=== PATIENT | female | born 1940 | race Caucasian/White ===

== ENCOUNTER 2016-11-04 21:34 | Emergency (ER) | payer MEDICARE ==
[2016-11-04 21:56] VITALS: TEMP 97.5
--- NOTE | 2016-11-04 22:41 | ED ---
General Adult HPI - General Chief complaint: Recheck/Abnormal Lab/Rx Stated complaint: High Blood Pressure Time Seen by Provider: 11/04/16 22:01 Source: patient, RN notes reviewed Mode of arrival: ambulatory Limitations: no limitations - History of Present Illness Initial comments: Patient is a pleasant 76-year-old female presenting to the emergency Department with concerns for high blood pressure. Patient felt uneasy in her stomach. No pain. No chest pain. Patient took her blood pressure at home and was elevated to 190/80. No weakness or confusion. No history of high blood pressure. Patient does occasionally take her blood pressure at home. Patient does admit to feeling more stress recently. - Related Data Home Medications Medication Instructions Recorded Confirmed Multivitamins, Thera [Multivitamin 1 tab PO DAILY 11/04/16 11/04/16 (formulary)] cycloSPORINE [Restasis] 1 drp BOTH EYES BID 11/04/16 11/04/16 Allergies Allergy/AdvReac Type Severity Reaction Status Date / Time grass pollen Allergy Dyspnea Verified 11/04/16 22:20 Sulfa (Sulfonamide Allergy Unknown Verified 11/04/16 22:20 Antibiotics) Childhood Review of Systems ROS Statement: Those systems with pertinent positive or pertinent negative responses have been documented in the HPI. ROS Other: All systems not noted in ROS Statement are negative. Constitutional: Denies: fever Eyes: Denies: eye pain ENT: Denies: ear pain Respiratory: Denies: cough Cardiovascular: Denies: chest pain Endocrine: Denies: fatigue Gastrointestinal: Denies: vomiting Genitourinary: Denies: dysuria Musculoskeletal: Denies: back pain Skin: Denies: rash Neurological: Denies: weakness Psychiatric: Reports: anxiety Past Medical History Past Medical History: No Reported History History of Any Multi-Drug Resistant Organisms: None Reported Past Surgical History: Cholecystectomy Additional Past Surgical History / Comment(s): colon surgery, lump removal from back Past Psychological History: No Psychological Hx Reported Smoking Status: Never smoker Past Alcohol Use History: None Reported Past Drug Use History: None Reported General Exam Limitations: no limitations General appearance: alert, in no apparent distress Head exam: Present: atraumatic Eye exam: Present: normal appearance, PERRL ENT exam: Present: normal oropharynx Neck exam: Present: normal inspection Respiratory exam: Present: normal lung sounds bilaterally. Absent: chest wall tenderness Cardiovascular Exam: Present: regular rate, normal rhythm Expanded Peripheral pulses: 2+: Radial (R), Radial (L), Dorsalis Pedis (R), Dorsalis Pedis (L) GI/Abdominal exam: Present: soft, normal bowel sounds. Absent: distended, tenderness, guarding, rebound, rigid, pulsatile mass Extremities exam: Present: normal inspection. Absent: pedal edema, calf tenderness Neurological exam: Present: alert, CN II-XII intact. Absent: motor sensory deficit Psychiatric exam: Present: normal affect, normal mood Skin exam: Absent: rash Course Vital Signs 11/04/16 11/04/16 11/04/16 21:50 22:15 22:30 Temperature 97.5 F L Pulse Rate 78 66 68 Respiratory 18 18 18 Rate Blood Pressure 225/82 175/88 178/86 O2 Sat by Pulse 97 99 99 Oximetry 11/04/16 11/04/16 23:11 23:31 Temperature Pulse Rate 61 60 Respiratory 20 16 Rate Blood Pressure 183/85 171/90 O2 Sat by Pulse 99 Oximetry EKG Findings - EKG Comments: EKG Findings:: Normal sinus rhythm 61. Normal intervals. Normal axis. Normal QRS. No acute ST change. Medical Decision Making - Medical Decision Making Patient reevaluated and symptom-free. Systolic blood pressure 177. Patient updated on results and need for follow-up with primary care physician. - Lab Data Result diagrams: 11/04/16 22:50 11/04/16 22:50 Lab Results 11/04/16 11/04/16 11/04/16 Range/Units 22:50 22:50 22:50 WBC 5.4 (3.8-10.6) k/uL RBC 4.95 (3.80-5.40) m/uL Hgb 14.8 (11.4-16.0) gm/dL Hct 43.7 (34.0-46.0) % MCV 88.2 (80.0-100.0) fL MCH 29.8 (25.0-35.0) pg MCHC 33.8 (31.0-37.0) g/dL RDW 12.2 (11.5-15.5) % Plt Count 184 (150-450) k/uL Neutrophils % 56 % Lymphocytes % 33 % Monocytes % 5 % Eosinophils % 3 % Basophils % 1 % Neutrophils # 3.0 (1.3-7.7) k/uL Lymphocytes # 1.8 (1.0-4.8) k/uL Monocytes # 0.3 (0-1.0) k/uL Eosinophils # 0.2 (0-0.7) k/uL Basophils # 0.1 (0-0.2) k/uL PT (9.0-12.0) sec INR (<1.1) APTT (22.0-30.0) sec Sodium 140 (137-145) mmol/L Potassium 3.9 (3.5-5.1) mmol/L Chloride 104 (98-107) mmol/L Carbon Dioxide 24 (22-30) mmol/L Anion Gap 12 mmol/L BUN 14 (7-17) mg/dL Creatinine 0.80 (0.52-1.04) mg/dL Est GFR (MDRD) Af Amer >60 (>60 ml/min/1.73 sqM) Est GFR (MDRD) Non-Af >60 (>60 ml/min/1.73 sqM) Glucose 102 H (74-99) mg/dL Calcium 9.9 (8.4-10.2) mg/dL Total Bilirubin 0.7 (0.2-1.3) mg/dL AST 32 (14-36) U/L ALT 35 (9-52) U/L Alkaline Phosphatase 123 (38-126) U/L Total Creatine Kinase 70 (30-135) U/L CK-MB (CK-2) 0.7 (0.0-2.4) ng/mL CK-MB (CK-2) Rel Index 1.0 Troponin I <0.012 (0.000-0.034) ng/mL Total Protein 7.5 (6.3-8.2) g/dL Albumin 4.5 (3.5-5.0) g/dL Urine Color Urine Appearance (Clear) Urine pH (5.0-8.0) Ur Specific [place] (1.001-1.035) Urine Protein (Negative) Urine Glucose (UA) (Negative) Urine Ketones (Negative) Urine Blood (Negative) Urine Nitrite (Negative) Urine Bilirubin (Negative) Urine Urobilinogen (<2.0) mg/dL Ur Leukocyte Esterase (Negative) Urine RBC (0-5) /hpf Urine WBC (0-5) /hpf Ur Squamous Epith Cells (0-4) /hpf 11/04/16 11/04/16 Range/Units 22:50 23:00 WBC (3.8-10.6) k/uL RBC (3.80-5.40) m/uL Hgb (11.4-16.0) gm/dL Hct (34.0-46.0) % MCV (80.0-100.0) fL MCH (25.0-35.0) pg MCHC (31.0-37.0) g/dL RDW (11.5-15.5) % Plt Count (150-450) k/uL Neutrophils % % Lymphocytes % % Monocytes % % Eosinophils % % Basophils % % Neutrophils # (1.3-7.7) k/uL Lymphocytes # (1.0-4.8) k/uL Monocytes # (0-1.0) k/uL Eosinophils # (0-0.7) k/uL Basophils # (0-0.2) k/uL PT 10.4 (9.0-12.0) sec INR 1.0 (<1.1) APTT 24.8 (22.0-30.0) sec Sodium (137-145) mmol/L Potassium (3.5-5.1) mmol/L Chloride (98-107) mmol/L Carbon Dioxide (22-30) mmol/L Anion Gap mmol/L BUN (7-17) mg/dL Creatinine (0.52-1.04) mg/dL Est GFR (MDRD) Af Amer (>60 ml/min/1.73 sqM) Est GFR (MDRD) Non-Af (>60 ml/min/1.73 sqM) Glucose (74-99) mg/dL Calcium (8.4-10.2) mg/dL Total Bilirubin (0.2-1.3) mg/dL AST (14-36) U/L ALT (9-52) U/L Alkaline Phosphatase (38-126) U/L Total Creatine Kinase (30-135) U/L CK-MB (CK-2) (0.0-2.4) ng/mL CK-MB (CK-2) Rel Index Troponin I (0.000-0.034) ng/mL Total Protein (6.3-8.2) g/dL Albumin (3.5-5.0) g/dL Urine Color Colorless Urine Appearance Clear (Clear) Urine pH 7.0 (5.0-8.0) Ur Specific [place] 1.004 (1.001-1.035) Urine Protein Negative (Negative) Urine Glucose (UA) Negative (Negative) Urine Ketones Negative (Negative) Urine Blood Negative (Negative) Urine Nitrite Negative (Negative) Urine Bilirubin Negative (Negative) Urine Urobilinogen <2.0 (<2.0) mg/dL Ur Leukocyte Esterase Large H (Negative) Urine RBC 1 (0-5) /hpf Urine WBC 7 H (0-5) /hpf Ur Squamous Epith Cells <1 (0-4) /hpf - Radiology Data Radiology results: image reviewed (Chest x-ray shows no acute process.) Disposition Clinical Impression: Hypertension Disposition: HOME SELF-CARE Condition: Stable Instructions: Hypertension (ED) Additional Instructions: Please follow-up with primary care physician this week. Return for uncontrolled blood pressure, chest pain, weakness, worsening symptoms or other concerns. Referrals: Rosemarie Ojeda MD [Primary Care Provider] - 1-2 days Time of Disposition: 00:06
[2016-11-04 23:02] LABS: Basophils # (A) 0.1 k/uL (0-0.2); Basophils % (A) 1 %; CH 30.2; CHCM 34.3; Eosinophils # (A) 0.2 k/uL (0-0.7); Eosinophils % (A) 3 %; HCT 43.7 % (34.0-46.0); HDW 2.42; HGB 14.8 gm/dL (11.4-16.0); Luc # (Auto) 0.12; Luc % (Auto) 2; Lymphocytes # (A) 1.8 k/uL (1.0-4.8); Lymphocytes % (A) 33 %; MCH 29.8 pg (25.0-35.0); MCHC 33.8 g/dL (31.0-37.0); MCV 88.2 fL (80.0-100.0); Mean Platelet Volume 7.7; Monocytes # (A) 0.3 k/uL (0-1.0); Monocytes % (A) 5 %; Neutrophils % (A) 56 %; RBC 4.95 m/uL (3.80-5.40); RDW 12.2 % (11.5-15.5); WBC 5.4 k/uL (3.8-10.6); WBC (Perox) 5.07
[2016-11-04 23:11] LABS: Partial Thromboplastin Time 24.8 sec (22.0-30.0); Prothrombin Time 10.4 sec (9.0-12.0)
[2016-11-04 23:12] LABS: ALT 35 U/L (9-52); AST 32 U/L (14-36); Alkaline Phosphatase 123 U/L (38-126); Anion Gap 12 mmol/L; Blood Urea Nitrogen 14 mg/dL (7-17); Calcium 9.9 mg/dL (8.4-10.2); Carbon Dioxide 24 mmol/L (22-30); Chloride 104 mmol/L (98-107); Glucose 102 mg/dL (74-99); Non-African American GFR(MDRD) >60 (>60 ml/min/1.73 sqM); Potassium 3.9 mmol/L (3.5-5.1); Sodium 140 mmol/L (137-145); Total Bilirubin 0.7 mg/dL (0.2-1.3); Total Protein 7.5 g/dL (6.3-8.2)
--- NOTE | 2016-11-04 23:14 | XR ---
EXAM: XR Chest, 2 Views CLINICAL HISTORY: Reason: Weakness TECHNIQUE: Frontal and lateral views of the chest. COMPARISON: No relevant prior studies available. FINDINGS: Lungs: Lungs are clear. Pleural space: No evidence of pneumothorax or pleural effusion. Heart: Heart size is within normal limits. Mediastinum: Mediastinal structures are within normal limits. Bones/joints: Imaged bony thorax is unremarkable. IMPRESSION: No evidence of active chest disease.
[2016-11-04 23:16] LABS: Appearance,Urine Clear (Clear); Bilirubin,Urine Negative (Negative); Glucose,Urine (UA) Negative (Negative); Ketones,Urine Negative (Negative); Leukocyte Esterase,Urine Large (Negative); Nitrite,Urine Negative (Negative); Particle Count 2308; Protein,Urine Negative (Negative); RBC,Urine 1 /hpf (0-5); Specific Gravity,Urine 1.004 (1.001-1.035); Squamous Epithelial Cell,Urine <1 /hpf (0-4); UA Billing (MACRO vs. MICRO) MICRO; Urobilinogen,Urine <2.0 mg/dL (<2.0); WBC,Urine 7 /hpf (0-5)
[2016-11-04 23:23] LABS: Creatine Kinase 70 U/L (30-135)
[2016-11-04] MEDS ORDERED: amLODIPine 5 MG TAB PO STA (23:30)
[2016-11-04 23:31] VITALS: RESP 16
[2016-11-04 23:36] LABS: Creatine Kinase MB 0.7 ng/mL (0.0-2.4); Troponin I <0.012 ng/mL (0.000-0.034)
[2016-11-05 00:27] VITALS: BP 177/78; PULSE 58
== END 2016-11-05 00:25 | disposition home or self-care (01) ==
LOC: EC 21:34
DX: I10 Essential (primary) hypertension (principal); Z79.899 Other long term (current) drug therapy; Z88.2 Allergy status to sulfonamides; Z91.048 Other nonmedicinal substance allergy status
CPT/HCPCS: 36415; 71020; 80053; 81001; 82550; 82553; 84484; 85025; 85610; 85730; 93005; 99284

== ENCOUNTER 2017-08-02 21:24 | Emergency (ER) | payer MEDICARE ==
[2017-08-02 21:31] VITALS: RESP 18
[2017-08-02] MEDS ORDERED: CARVEDILOL 6.25 MG TAB PO STA (21:33)
[2017-08-02 21:57] LABS: Basophils % (A) 1 %; Eosinophils # (A) 0.2 k/uL (0-0.7); Eosinophils % (A) 3 %; HCT 45.2 % (34.0-46.0); HGB 14.3 gm/dL (11.4-16.0); Lymphocytes # (A) 2.3 k/uL (1.0-4.8); Lymphocytes % (A) 39 %; MCH 28.8 pg (25.0-35.0); MCHC 31.6 g/dL (31.0-37.0); MCV 91.2 fL (80.0-100.0); Mean Platelet Volume 7.5; Monocytes # (A) 0.3 k/uL (0-1.0); Monocytes % (A) 5 %; Neutrophils % (A) 50 %; Platelet Count 224 k/uL (150-450); RBC 4.95 m/uL (3.80-5.40); RDW 12.2 % (11.5-15.5)
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
[2017-08-02 22:13] LABS: Blood Urea Nitrogen 17 mg/dL (7-17); Calcium 9.4 mg/dL (8.4-10.2); Carbon Dioxide 25 mmol/L (22-30); Potassium 4.1 mmol/L (3.5-5.1)
[2017-08-02 22:14] LABS: Glucose 105 mg/dL (74-99)
[2017-08-02 22:16] LABS: Anion Gap 12 mmol/L; Chloride 104 mmol/L (98-107); Sodium 141 mmol/L (137-145)
[2017-08-02 23:39] VITALS: BP 150/65; PULSE 54; TEMP 96.9
== END 2017-08-02 23:37 | disposition home or self-care (01) ==
LOC: EC 21:24
DX: I10 Essential (primary) hypertension (principal); Z79.02 Long term (current) use of antithrombotics/antiplatelets; Z79.899 Other long term (current) drug therapy; Z91.048 Other nonmedicinal substance allergy status; Z88.2 Allergy status to sulfonamides
CPT/HCPCS: 36415; 80048; 84484; 85025; 93005; 99283

== ENCOUNTER 2017-10-15 06:28 | Day surgery (SDC) | payer MEDICARE ==
[2017-10-10 15:13] VITALS: BMI 21.2
[~2017-10-15 06:28] MED LIST: LACTATED RINGERS 1,000 ML IV SCH; LIDOCAINE 1% 20 ML VIAL (10MG/ML) FOR IV START INTRADERMA PRN
[2017-10-15 07:19] VITALS: RESP 16; TEMP 97.6
[2017-10-15] MEDS ORDERED: LIDOCAINE 1% INJ 10MG/ML (20 ML MDV) ONE (07:40)
[2017-10-15] MEDS ORDERED: PROPOFOL 10 MG/ML 20 ML VIAL IV ONE (07:40)
--- NOTE | 2017-10-15 08:30 | P.OP ---
Date of Procedure: 10/15/17 Preoperative Diagnosis: Patient is status post right colon resection for polypoid lesion personal history of colon polyps Postoperative Diagnosis: Diverticuli, internal hemorrhoids Procedure(s) Performed: Colonoscopy Anesthesia: MAC Estimated Blood Loss (ml): 0 IV fluids (ml): 350 Pathology: none sent Condition: stable Disposition: PACU Indications for Procedure: Patient with a history of right colon resection and colon polyps Operative Findings: Diverticuli, internal hemorrhoids Description of Procedure: Patient was taken to the endoscopy suite and following sedation rectal exam was performed. She had some excoriation of the perianal area and some patulousness of the anus. No masses were identified. Colonoscope was passed through the anus into the rectum. Was passed through the sigmoid colon up to splenic flexure and into the transverse colon. This passed to the anastomosis patient is status post a right colon resection. Circumferential observation of the mucosa did not reveal any lesions of concern in the transverse colon or at the area of the anastomosis. No polypoid lesions of concern were identified in the transverse colon or left colon or sigmoid colon the patient did have diverticuli in the sigmoid colon. Scope was brought down to the rectum where it was retroflexed internal hemorrhoids were identified. Impression/plan: 1. Diverticuli 2. Internal hemorrhoids Plan: Repeat scope 7-10 years 2. Conservative management of hemorrhoids and diverticuli
--- NOTE | 2017-10-15 08:31 | P.DS ---
Providers Attending physician: Little Sneed Primary care physician: Rosemarie Ojeda Plan - Discharge Summary New Discharge Prescriptions: No Action cycloSPORINE [Restasis] 1 drp BOTH EYES BID Multivitamins, Thera [Multivitamin (formulary)] 1 tab PO DAILY Carvedilol [Coreg] 6.25 mg PO BID Discharge Medication List Multivitamins, Thera [Multivitamin (formulary)] 1 tab PO DAILY 11/04/16 [History ] cycloSPORINE [Restasis] 1 drp BOTH EYES BID 11/04/16 [History] Carvedilol [Coreg] 6.25 mg PO BID 08/02/17 [History] Activity/Diet/Wound Care/Special Instructions: Diverticular diet Do not drive today Discharge Disposition: HOME SELF-CARE
[2017-10-15 09:15] VITALS: BP 140/76; PULSE 67
== END 2017-10-15 09:32 | disposition home or self-care (01) ==
LOC: ORWHC2ENDO 06:28
PROVIDERS: ATTEND Surgery
DX: K57.30 Diverticulosis of large intestine without perforation or abscess without bleeding (principal); K62.89 Other specified diseases of anus and rectum; K64.8 Other hemorrhoids; I10 Essential (primary) hypertension; Z86.010 Personal history of colon polyps; Z90.49 Acquired absence of other specified parts of digestive tract; Z98.0 Intestinal bypass and anastomosis status; Z88.2 Allergy status to sulfonamides; Z79.899 Other long term (current) drug therapy
CPT/HCPCS: 45378; J2001; J2704

== ENCOUNTER → 2018-02-05 | Outpatient (CLI) | payer MEDICARE ==
[2018-02-05 08:41] LABS: Blood Urea Nitrogen 12 mg/dL (7-17)
--- NOTE | 2018-02-05 14:37 | CT ---
EXAMINATION TYPE: CT abdomen pelvis w con DATE OF EXAM: 02/05/2018 COMPARISON: None INDICATION: Diverticulitis DLP: 392.7 mGycm, Automated exposure control for dose reduction was used. CONTRAST: 100 mL of Isovue 300. Study performed with Oral Contrast TECHNIQUE: Axial images were obtained from above the diaphragm to the pubic rami in the axial plane a t 5 mm thick sections. Reconstructed images are reviewed on the computer in the coronal plane. FINDINGS: Limited CT sections are obtained the lung bases. There is a 0.4 cm nodule on the periphery of the ri ght lower lobe along the major fissure. Lung bases otherwise appear clear. Follow-up 6 [address] is im[address] mm[address]. CT ABDOMEN: Liver: Normal Spleen: Normal Pancreas: Normal Adrenal glands: The adrenal glands are normal. Gallbladder: Normal Kidneys: No masses are evident. No hydronephrosis is present. There is a 1.3 cm cyst measuring 32 H [place] units in the right mid renal cortex. Very tiny renal cortical cyst the the present kidneys and plane images. Delayed images were obtained through the kidneys, which remain unremarkable. Aorta: Vascular calcification is within the aorta. Inferior vena cava: Normal. CT PELVIS: Loops of bowel within the abdomen and pelvis are normal. There are scattered diverticuli of the d escending colon sigmoid colon junction. Minimal wall thickening may be present. Very mild diverticuli tis may be present. Significant inflammatory changes adjacent are not identified. Appendix: Normal as visualized on the axial plane images. Urinary bladder: Normal. Genitourinary structures: Uterus is normal. Adnexal regions are clear. Osseous structures: No suspicious lytic or sclerotic lesions. Facet degenerative changes are present. IMPRESSIONS: 1. Suggestion of mild diverticulitis at the descending colon sigmoid colon junction. 2. Tiny nonspecific nodules in the right lower lobe major fissure. Follow-up chest CT within 6 months is recommended.
== END | disposition home or self-care (01) ==
LOC: RADCTMAIN 07:55
PROVIDERS: ATTEND Surgery Plastic and Reconstructive Surgery
DX: R91.8 Other nonspecific abnormal finding of lung field (principal); Z88.2 Allergy status to sulfonamides
CPT/HCPCS: 82565; 84520; 74177; 36415; Q9967

== ENCOUNTER → 2019-12-15 | Outpatient (CLI) | payer MEDICARE ==
--- NOTE | 2019-12-15 08:56 | XR ---
EXAMINATION TYPE: XR cervical spine limited DATE OF EXAM: 12/15/2019 COMPARISON: NONE HISTORY: Pain TECHNIQUE: 3 views submitted FINDINGS: Odontoid view is nondiagnostic. 2 mm anterolisthesis C4 on C5. Severe degenerative disc disease C5-6 and C6-C7. Multilevel facet arth ropathy. Prevertebral soft tissue structures within normal limits. Ossification or calcification seen anterior to C5. IMPRESSION: 1. Multilevel severe degenerative disc disease. There is a 2 mm anterolisthesis C4 on C5. Consider MR I.
--- NOTE | 2019-12-15 09:04 | XR ---
EXAMINATION TYPE: XR shoulder complete RT DATE OF EXAM: 12/15/2019 COMPARISON: NONE HISTORY: Pain TECHNIQUE: Three views are submitted. FINDINGS: The osseous structures are intact. There is no acute fracture or dislocation. Arthropathy of the AC joint. Calcified lymph nodes in the right hilum. Diffuse osteopenia.. IMPRESSION: 1. Diffuse osteopenia with AC joint arthropathy.
== END | disposition home or self-care (01) ==
LOC: RADXRMAIN 07:39
PROVIDERS: ATTEND Family Medicine
DX: M85.811 Other specified disorders of bone density and structure, right shoulder (principal); M12.811 Other specific arthropathies, not elsewhere classified, right shoulder; M43.12 Spondylolisthesis, cervical region; M50.30 Other cervical disc degeneration, unspecified cervical region
CPT/HCPCS: 72040

== ENCOUNTER → 2020-01-12 | Outpatient (CLI) | payer MEDICARE ==
--- NOTE | 2020-01-12 16:01 | MR ---
EXAMINATION TYPE: MR cervical spine wo con DATE OF EXAM: 01/12/2020 COMPARISON: X-ray 12/15/2019 HISTORY: Degenerative joint disease, sore shoulder and neck TECHNIQUE: Multiplanar, multisequence images of the cervical spine were acquired. C2-C3: Degenerative disc disease with facet arthropathy greater on the left. Moderate left-sided fora romario encroachment. C3-C4: Degenerative disc disease with facet arthropathy. Uncovertebral joint hypertrophy. Moderate le ft foraminal encroachment. C4-C5: Degenerative disc disease. Facet arthropathy, uncovertebral joint hypertrophy and broad-based disc bulging capped by spur results in anterior compression of the spinal cord and moderate canal pelon nosis. Moderate to severe right foraminal encroachment and moderate left foraminal encroachment. C5-C6: Severe degenerative disc disease with retrolisthesis of C5 relative to C6. Disc osteophyte com plex with disc protrusion capped by spur results in moderate compression of the thecal sac and spinal cord. Facet arthropathy and uncovertebral joint hypertrophy contributes to moderate to severe bilate ral foraminal encroachment and moderate canal stenosis. C6-C7: Severe degenerative disc disease. Broad-based disc bulging with hypertrophic change of the unc overtebral joints. Moderate bilateral foraminal encroachment with no canal stenosis. C7-T1: No evidence for degenerative disc disease. No disc bulge/herniation or protrusion. No Canal stenosis. Foramina are patent bilaterally. Cervical segments are intact. There is normal alignment. Cervical spinal cord is of normal signal. Craniovertebral junction relationships are within normal limits. IMPRESSION: 1. Severe multilevel degenerative disc disease with multilevel disc bulging capped by spur resulting in multilevel canal stenosis and significant foraminal encroachment most marked at C4-5 and C5-6.
== END ==
LOC: RADMRIMAIN 15:00
PROVIDERS: ATTEND Family Medicine
DX: M48.02 Spinal stenosis, cervical region (principal); M50.221 Other cervical disc displacement at C4-C5 level; M50.321 Other cervical disc degeneration at C4-C5 level
CPT/HCPCS: 72141

== ENCOUNTER 2020-03-30 11:00 | Emergency (ER) | payer MEDICARE ==
[2020-03-30 11:07] VITALS: RESP 18; TEMP 98
--- NOTE | 2020-03-30 12:21 | CT ---
EXAMINATION TYPE: CT brain duy perez DATE OF EXAM: 03/30/2020 COMPARISON: HISTORY: Fall, struck back of head on carpeted floor, pt on low dose aspirin CT DLP: 1217.7 mGycm Automated exposure control for dose reduction was used. TECHNIQUE: CT scan of the head and cervical spine are performed without contrast. FINDINGS: There is no acute intracranial hemorrhage, mass effect, or midline shift identified. The ventricles and sulci are within normal limits in size. The globes are intact and the visualized sin uses are clear. Cervical spine is visualized in its entirety from C1 through upper thoracic levels and demonstrates a nterolisthesis grade 1 C4-5, retrolisthesis grade 1 C5-6 and C6-7 without evidence of acute fracture or dislocation. Loss of disc height is present at C5-6 and C6-7, there is associated spondylosis, mul tilevel foraminal encroachment, facet arthropathy. Prevertebral soft tissue appears within normal [place] its. The C1-C2 articulation is unremarkable. IMPRESSION: 1. There is no acute fracture or dislocation evident in the cervical spine. 2. No acute intracranial hemorrhage, mass effect, or midline shift is seen.
--- NOTE | 2020-03-30 12:34 | ED ---
Head Injury HPI - General Chief complaint: Head Injury Stated complaint: Fell, hit head Time Seen by Provider: 03/30/20 11:10 Source: patient Mode of arrival: ambulatory Limitations: no limitations - History of Present Illness Initial comments: Patient is 79-year-old female presenting to emergency Department with the chief complaint of fall. Patient states she was up on a ladder attempting to remove her curtains when she lost her footing as she was attempting to get on the bed. States she felt backward on her back and hit the occipital region of her head. Denies any loss of consciousness or any blood thinners. States she now has pain in the cervical spine and along bilateral trapezii. She denies any alleviating or aggravating factors. Denies any visual disturbances, one-sided weakness or paresthesias. - Related Data Home Medications Medication Instructions Recorded Confirmed Aspirin EC [Ecotrin Low Dose] 81 mg PO DAILY 03/30/20 03/30/20 amLODIPine [Norvasc] 2.5 mg PO DAILY 03/30/20 03/30/20 carvediloL [Coreg] 6.25 mg PO BID 03/30/20 03/30/20 Allergies/Adverse reactions: Allergies Allergy/AdvReac Type Severity Reaction Status Date / Time grass pollen Allergy Dyspnea Verified 03/30/20 11:44 Sulfa (Sulfonamide Allergy Rash/Hives Verified 03/30/20 11:44 Antibiotics) Review of Systems ROS Statement: Those systems with pertinent positive or pertinent negative responses have been documented in the HPI. ROS Other: All systems not noted in ROS Statement are negative. Past Medical History Past Medical History: Hypertension Additional Past Medical History / Comment(s): diverticulosis, kidney stones, recent hx. diverticulitis History of Any Multi-Drug Resistant Organisms: None Reported Past Surgical History: Bowel Resection, Cholecystectomy Additional Past Surgical History / Comment(s): lump removal from back Past Anesthesia/Blood Transfusion Reactions: No Reported Reaction Past Psychological History: No Psychological Hx Reported Smoking Status: Never smoker Past Alcohol Use History: None Reported Past Drug Use History: None Reported - Past Family History Mother Family Medical History: Cancer General Exam Limitations: no limitations General appearance: alert, in no apparent distress Head exam: Present: atraumatic, normocephalic, normal inspection. Absent: other (Negative Bowen sign, raccoon eyes, hemotympanum.) Eye exam: Present: normal appearance, PERRL, EOMI Pupils: Present: normal accommodation ENT exam: Present: normal exam, normal oropharynx, mucous membranes moist, TM's normal bilaterally, normal external ear exam Neck exam: Present: normal inspection, tenderness (Mild mid cervical and paraspinal tenderness.), full ROM. Absent: meningismus, lymphadenopathy, thyromegaly Respiratory exam: Present: normal lung sounds bilaterally. Absent: respiratory distress, wheezes, rales Cardiovascular Exam: Present: regular rate, normal rhythm, normal heart sounds GI/Abdominal exam: Present: soft. Absent: distended, tenderness, guarding, rebound Extremities exam: Present: normal inspection, full ROM, normal capillary refill. Absent: tenderness Back exam: Present: normal inspection, full ROM. Absent: tenderness, CVA tenderness (R), CVA tenderness (L) Neurological exam: Present: alert, oriented X3, CN II-XII intact, normal gait Psychiatric exam: Present: normal affect, normal mood Skin exam: Present: warm, dry, intact, normal color Course Vital Signs 03/30/20 03/30/20 11:01 12:47 Temperature 98.0 F Pulse Rate 59 L 60 Respiratory 18 18 Rate Blood Pressure 146/60 140/62 O2 Sat by Pulse 98 98 Oximetry Medical Decision Making - Medical Decision Making patient is 79-year-old female presenting to the emergency department with a chief complaint of fall. On physical examination, no significant signs of trauma are detected in the head. Brain and C-spine CT without contrast shows no acute processes. Patient advised to follow with the primary care physician. She did not have any complaints on initial evaluation. Return parameters were thoroughly discussed with patient was understanding and agreeable. Case discussed with physician. Disposition Clinical Impression: Head injury, Fall Disposition: HOME SELF-CARE Condition: Stable Instructions (If sedation given, give patient instructions): Head Injury (ED) Additional Instructions: Follow-up with your primary care physician .Return to emergency department if symptoms worsen. Is patient prescribed a controlled substance at d/c from ED?: No Referrals: Rosemarie Ojeda MD [Primary Care Provider] - 1-2 days Time of Disposition: 12:34
[2020-03-30 12:48] VITALS: BP 140/62; PULSE 60
== END 2020-03-30 12:36 | disposition home or self-care (01) ==
LOC: EC 11:00
DX: S09.90XA Unspecified injury of head, initial encounter (principal); I10 Essential (primary) hypertension; Z79.82 Long term (current) use of aspirin; Z79.02 Long term (current) use of antithrombotics/antiplatelets; Z79.899 Other long term (current) drug therapy; Z88.2 Allergy status to sulfonamides; Z91.018 Allergy to other foods; W11.XXXA Fall on and from ladder, initial encounter
CPT/HCPCS: 70450; 72125; 99283

== ENCOUNTER 2021-11-02 07:48 | Day surgery (SDC) | payer MEDICARE ==
[2021-11-01 10:11] VITALS: BMI 22.3
[~2021-11-02 07:48] MED LIST changes: -LIDOCAINE 1% 20 ML VIAL (10MG/ML) FOR IV START INTRADERMA PRN
--- NOTE | 2021-11-02 08:11 | P.GSHP ---
History of Present Illness H&P Date: 11/02/21 CHIEF COMPLAINT: Colon screen HISTORY OF PRESENT ILLNESS: The patient is a 81-year-old female who presents for colon screen. Lower endoscopy was offered for further evaluation and management. PAST MEDICAL HISTORY: Please see list. PAST SURGICAL HISTORY: Please see list. MEDICATIONS: Please see list. ALLERGIES: Please see list. SOCIAL HISTORY: No illicit drug use FAMILY HISTORY: No reports of Crohn disease or ulcerative colitis. REVIEW OF ORGAN SYSTEMS: CONSTITUTIONAL: No reports of fevers or chills. PHYSICAL EXAM: VITAL SIGNS: Stable GENERAL: Well-developed pleasant in no acute distress. HEENT: No scleral icterus. Extraocular movements grossly intact. Moist buccal mucosa. NECK: Supple without lymphadenopathy. CHEST: Unlabored respirations. Equal bilateral excursions. CARDIOVASCULAR: Regular rate and rhythm. Distal 2+ pulses. ABDOMEN: Soft, nontender, nondistended. MUSCULOSKELETAL: No clubbing, cyanosis, or edema. ASSESSMENT: 1. Colon screen. PLAN: 1. Recommend proceeding with a lower endoscopy Past Medical History Past Medical History: Hypertension Additional Past Medical History / Comment(s): intermittent left lower abd pain,diverticulosis, kidney stones, hx. diverticulitis History of Any Multi-Drug Resistant Organisms: None Reported Past Surgical History: Bowel Resection, Cholecystectomy Additional Past Surgical History / Comment(s): lump removal from back,bowerl resection r/t too large of polyp Past Anesthesia/Blood Transfusion Reactions: No Reported Reaction, Motion Sick ness Smoking Status: Never smoker - Past Family History Mother Family Medical History: Cancer Additional Family Medical History / Comment(s): stomach Medications and Allergies Home Medications Medication Instructions Recorded Confirmed Type Aspirin EC [Ecotrin Low Dose] 81 mg PO DAILY 03/30/20 11/01/21 History amLODIPine [Norvasc] 2.5 mg PO QAM 03/30/20 11/02/21 History carvediloL [Coreg] 3.125 mg PO BID 03/30/20 11/02/21 History Allergies Allergy/AdvReac Type Severity Reaction Status Date / Time grass pollen Allergy Dyspnea Verified 11/02/21 08:04 Sulfa (Sulfonamide Allergy Rash/Hives Verified 11/02/21 08:04 Antibiotics)
[2021-11-02 08:17] VITALS: RESP 16; TEMP 97
[2021-11-02] MEDS ORDERED: PROPOFOL 10 MG/ML 20 ML VIAL IV ONE (09:14)
--- NOTE | 2021-11-02 09:41 | P.PCN ---
Date of Procedure: 11/02/21 Description of Procedure: PREOPERATIVE DIAGNOSIS: Personal history of colon polyps Colonoscopy screening POSTOPERATIVE DIAGNOSIS: Status post right hemicolectomy Tubular adenoma transverse colon Sigmoid diverticulosis Internal hemorrhoids, grade 2 Polypoid lesion ileocolic and external Lipoma rectum OPERATION: Colonoscopy to the ileocolic anastomosis Colonoscopy with hot snare polypectomy Colonoscopy with cold forceps biopsy SURGEON: Cindy Steiner MD. ANESTHESIA: MAC. INDICATIONS: The patient is an 67-year-old male who presents family history of malignant colon polyps and personal history of colon polyps. Last colonoscopy over 5 years. Benefits and risks were described and informed consent was obtained. DESCRIPTION OF PROCEDURE: The patient had undergone Sutab prep. The patient had been brought into the operating room and laid in the left lateral decubitus position. After adequate intravenous sedation, the rectum was examined with 2% lidocaine jelly. The prostate was unremarkable. External hemorrhoids were encountered. The rectal tone was within normal limits. No lesions were palpated in the rectal vault. An Olympus colonoscope was advanced until the cecum, ileocecal valve and appendiceal orifice were clearly viewed. The prep was good. Sigmoid diverticulosis was encountered. Colonic polyps were found and removed. No evidence of focal colitis was found. Retroflexion of the scope demonstrated grade 2 internal hemorrhoids without active bleeding or inflammation. The colon was desufflated. The patient had tolerated the procedure well. Withdrawal time was over 6 minutes. FINDINGS: Aronchick preparation quality scale 2 (1-5) Internal hemorrhoids, grade 2 External hemorrhoids, grade 2. No arteriovenous malformations. Ileocolic anastomosis with multiple small polypoid lesions biopsied Sigmoid diverticulosis Lipoma of the rectum, 3 mm Removal of 3 polyps: - Snare polypectomy transverse colon 2, 5 mm to 8 mm tubulovillous adenoma polyp. - Cold forceps biopsy at 15 cm from the anal verge, 4 mm polyp, sigmoid colon No focal colitis. RECOMMENDATIONS: Repeat colonoscopy in 3 years, 2024 Plan - Discharge Summary Discharge Rx Participant: No New Discharge Prescriptions: Continue Aspirin EC [Ecotrin Low Dose] 81 mg PO DAILY carvediloL [Coreg] 3.125 mg PO BID amLODIPine [Norvasc] 2.5 mg PO QAM Discharge Medication List Aspirin EC [Ecotrin Low Dose] 81 mg PO DAILY 03/30/20 [History] amLODIPine [Norvasc] 2.5 mg PO QAM 03/30/20 [History] carvediloL [Coreg] 3.125 mg PO BID 03/30/20 [History] Follow up Appointment(s)/Referral(s): Cindy Steiner MD [STAFF PHYSICIAN] - 11/21/21 Patient Instructions/Handouts: Diverticulosis Diet (GEN), Diverticulosis (DC), Colorectal Polyps (GEN) Activity/Diet/Wound Care/Special Instructions: Repeat colonoscopy in 3 years, 2024 Discharge Disposition: HOME SELF-CARE
[2021-11-02 10:07] VITALS: BP 137/61; PULSE 56
== END 2021-11-02 10:25 | disposition home or self-care (01) ==
LOC: ORWHC2ENDO 07:48
PROVIDERS: ATTEND Surgery Plastic and Reconstructive Surgery
DX: Z12.11 Encounter for screening for malignant neoplasm of colon (principal); K57.30 Diverticulosis of large intestine without perforation or abscess without bleeding; D12.3 Benign neoplasm of transverse colon; K64.8 Other hemorrhoids; I10 Essential (primary) hypertension; Z79.82 Long term (current) use of aspirin; Z80.0 Family history of malignant neoplasm of digestive organs; Z87.442 Personal history of urinary calculi; Z88.2 Allergy status to sulfonamides; Z90.49 Acquired absence of other specified parts of digestive tract
CPT/HCPCS: 45380; 45385; 88305; J2704

== ENCOUNTER → 2023-03-28 | Outpatient (CLI) | payer MEDICARE ==
[2023-03-28 16:46] LABS: ALT 43 U/L (8-44); AST 41 U/L (13-35); Albumin 4.5 d/dL (3.8-4.9); Albumin/Globulin Ratio 1.88 Ratio (1.60-3.17); Alkaline Phosphatase 136 U/L (41-126); BUN/Creat Ratio 18.71 Ratio (12.00-20.00); Blood Urea Nitrogen 13.1 mg/dL (9.0-27.0); Calcium 9.3 mg/dL (8.7-10.3); Carbon Dioxide 24.6 mmol/L (21.6-31.8); Chloride 103 mmol/L (96-109); Globulin 2.4 d/dL (1.6-3.3); Glucose 92 mg/dL (70-110); Potassium 4.8 mmol/L (3.5-5.5); Sodium 139 mmol/L (135-145); Total Bilirubin 0.4 mg/dL (0.3-1.2); Total Protein 6.9 d/dL (6.2-8.2)
[2023-03-28 17:08] LABS: HCT 45.1 % (37.2-46.3); HGB 14.9 d/dL (12.0-15.0); MCH 29.6 pg (27.0-32.0); MCV 89.5 FL (80.0-97.0); NRBC Per 100 WBC 0 X 10*3/uL (0.00-0.01); Platelet Count 223 X 10*3/uL (140-440); RBC 5.04 X 10*6/uL (4.10-5.20); RDW 12.4 % (11.5-14.5); WBC 5.33 X 10*3/uL (4.50-10.00)
== END | disposition home or self-care (01) ==
LOC: LABWHC1 10:02
PROVIDERS: ATTEND Internal Medicine Interventional Cardiology
DX: I10 Essential (primary) hypertension (principal); I34.0 Nonrheumatic mitral (valve) insufficiency; R53.83 Other fatigue
CPT/HCPCS: 36415; 80053; 83036; 84443; 85027

== ENCOUNTER 2024-01-08 09:51 | Day surgery (SDC) | payer MEDICARE ==
--- NOTE | 2024-01-08 09:04 | P.GSHP ---
History of Present Illness H&P Date: 01/08/24 CHIEF COMPLAINT: Colon screen HISTORY OF PRESENT ILLNESS: The patient is a 83-year-old female who presents for colon screen. Lower endoscopy was offered for further evaluation and management. PAST MEDICAL HISTORY: Please see list. PAST SURGICAL HISTORY: Please see list. MEDICATIONS: Please see list. ALLERGIES: Please see list. SOCIAL HISTORY: No illicit drug use FAMILY HISTORY: No reports of Crohn disease or ulcerative colitis. REVIEW OF ORGAN SYSTEMS: CONSTITUTIONAL: No reports of fevers or chills. PHYSICAL EXAM: VITAL SIGNS: Stable GENERAL: Well-developed pleasant in no acute distress. HEENT: No scleral icterus. Extraocular movements grossly intact. Moist buccal mucosa. NECK: Supple without lymphadenopathy. CHEST: Unlabored respirations. Equal bilateral excursions. CARDIOVASCULAR: Regular rate and rhythm. Distal 2+ pulses. ABDOMEN: Soft, nontender, nondistended. MUSCULOSKELETAL: No clubbing, cyanosis, or edema. ASSESSMENT: 1. Colon screen. PLAN: 1. Recommend proceeding with a lower endoscopy Past Medical History Past Medical History: Hypertension Additional Past Medical History / Comment(s): diverticulosis, hx kidney stones, hx. diverticulitis, aches and pains. History of Any Multi-Drug Resistant Organisms: None Reported Past Surgical History: Bowel Resection, Cholecystectomy Additional Past Surgical History / Comment(s): lump removal from back,bowel resection r/t too large of polyp- benign Past Anesthesia/Blood Transfusion Reactions: No Reported Reaction, Motion Sickness Smoking Status: Never smoker - Past Family History Mother Family Medical History: Cancer Additional Family Medical History / Comment(s): stomach Medications and Allergies Home Medications Medication Instructions Recorded Confirmed Type Aspirin EC [Ecotrin Low Dose] 81 mg PO DAILY 03/30/20 01/03/24 History amLODIPine [Norvasc] 2.5 mg PO QAM 03/30/20 01/03/24 History carvediloL [Coreg] 3.125 mg PO BID 03/30/20 01/03/24 History Allergies Allergy/AdvReac Type Severity Reaction Status Date / Time grass pollen Allergy Dyspnea Verified 11/02/21 08:04 Sulfa (Sulfonamide Allergy Rash/Hives Verified 11/02/21 08:04 Antibiotics)
[2024-01-08 10:22] VITALS: RESP 14; TEMP 97.1
[2024-01-08] MEDS: LACTATED RINGERS 1,000 ML IV SCH (10:28)
[2024-01-08] MEDS: IV FLUID CONTINUATION 1,000 ML IV ONE (10:28)
[2024-01-08] MEDS ORDERED: PROPOFOL 10 MG/ML 20 ML VIAL IV ONE (10:50)
[2024-01-08 11:10] VITALS: PULSE 63
[2024-01-08 11:24] VITALS: BP 130/84
--- NOTE | 2024-01-08 23:24 | P.PCN ---
Date of Procedure: 01/08/24 Description of Procedure: PREOPERATIVE DIAGNOSIS: History of colon cancer status post right hemicolectomy History of high risk colon adenomas Colonoscopy screening. POSTOPERATIVE DIAGNOSIS: History of colon cancer status post right hemicolectomy History of high risk colon adenomas Colonoscopy screening. OPERATION: Colonoscopy to the ileocolic anastomosis. SURGEON: Cindy Steiner MD. ANESTHESIA: MAC. INDICATIONS: The patient is a 83-year-old female who presents with prior right hemicolectomy due to colon cancer as well as recent high risk colon adenomas. Last colonoscopy within 5 years. Benefits and risks were described and informed consent was obtained. DESCRIPTION OF PROCEDURE: The patient had undergone GoLytely prep. The patient had been brought into the operating room and laid in the left lateral decubitus position. After adequate intravenous sedation, the rectum was examined with 2% lidocaine jelly. No external hemorrhoids were encountered. The rectal tone was within normal limits. No lesions were palpated in the rectal vault. An Olympus colonoscope was advanced until the ileocolic anastomosis was clearly viewed. The prep was good. Moderate scattered diverticulosis was encountered. No colonic polyps were found. No evidence of focal colitis was found. Retroflexion of the scope demonstrated grade 1 internal hemorrhoids without active bleeding or inflammation. The colon was desufflated. The patient had tolerated the procedure well. Withdrawal time was over 6 minutes. FINDINGS: Aronchick preparation quality scale 2(1-5) Internal hemorrhoids, grade 1 No external prolapsed hemorrhoids. No arteriovenous malformations. No adenomatous polyps. No focal colitis. Ileocolic anastomosis from prior right hemicolectomy RECOMMENDATIONS: Lower endoscopy in 5 years, 2028 due to high risk adenomas Plan - Discharge Summary New Discharge Prescriptions: Continue Aspirin EC [Ecotrin Low Dose] 81 mg PO DAILY carvediloL [Coreg] 3.125 mg PO BID amLODIPine [Norvasc] 2.5 mg PO QAM Discharge Medication List Aspirin EC [Ecotrin Low Dose] 81 mg PO DAILY 03/30/20 [History] amLODIPine [Norvasc] 2.5 mg PO QAM 03/30/20 [History] carvediloL [Coreg] 3.125 mg PO BID 03/30/20 [History] Follow up Appointment(s)/Referral(s): Cindy Steiner MD [STAFF PHYSICIAN] - As Needed Patient Instructions/Handouts: *Surgery [facility] - (Anesthesia) Discharge Instruct ions Outpatient Surgery, Colonoscopy (DC) Activity/Diet/Wound Care/Special Instructions: Repeat colonoscopy in 5 years, 2028 Discharge Disposition: HOME SELF-CARE
== END 2024-01-08 12:34 | disposition home or self-care (01) ==
LOC: ORWHC2ENDO 09:51
PROVIDERS: ATTEND Surgery Plastic and Reconstructive Surgery
DX: K64.0 First degree hemorrhoids (principal); I10 Essential (primary) hypertension; K57.30 Diverticulosis of large intestine without perforation or abscess without bleeding; N20.0 Calculus of kidney; Z85.038 Personal history of other malignant neoplasm of large intestine; Z86.010 Personal history of colon polyps; Z87.442 Personal history of urinary calculi; Z87.19 Personal history of other diseases of the digestive system; Z80.9 Family history of malignant neoplasm, unspecified; Z88.2 Allergy status to sulfonamides; Z88.1 Allergy status to other antibiotic agents; Z79.82 Long term (current) use of aspirin; Z79.899 Other long term (current) drug therapy
CPT/HCPCS: J2704; G0105; 45378

== ENCOUNTER 2024-12-28 11:15 | Day surgery (SDC) | payer MEDICARE ==
[2024-12-28 11:59] VITALS: BP 156/90; PULSE 72; RESP 16; TEMP 98.8
[2024-12-28 12:40] LABS: African American GFR (CKD) >90 (>60 ml/min/1.73 sqM); Anion Gap 11 mmol/L; Blood Urea Nitrogen 21 mg/dL (7-17); Calcium 9.6 mg/dL (8.4-10.2); Carbon Dioxide 22 mmol/L (22-30); Chloride 105 mmol/L (98-107); Glucose 100 mg/dL (74-99); Non-African American GFR(CKD) 86 (>60 ml/min/1.73 sqM); Potassium 4.4 mmol/L (3.5-5.1); Sodium 138 mmol/L (137-145)
== END 2024-12-28 14:23 | disposition home or self-care (01) ==
LOC: CATHCVL 11:15
PROVIDERS: ATTEND Family Medicine
DX: R78.81 Bacteremia (principal); B96.5 Pseudomonas (aeruginosa) (mallei) (pseudomallei) as the cause of diseases classified elsewhere
CPT/HCPCS: 36573; 80048; C1751